=== PATIENT | male | born 1970 | race African-American/Black ===

== ENCOUNTER 2018-12-27 06:21 | Emergency (ER) | payer SELFPAY ==
[2018-12-27] MEDS ORDERED: HYDROCOD 2.5mg-ACETAMIN 108mg/5mL Soln ONE (06:45)
[2018-12-27] MEDS ORDERED: DEXAMETHASONE 4 MG/ML VIAL ONE (06:45)
[2018-12-27] MEDS ORDERED: CLINDAMYCIN IV 150 MG/ML (4 mL) VIAL ONE (06:48)
--- NOTE | 2018-12-27 07:21 | EDPHYS ---
Physician Documentation [facility] Name: Javid Reza Age: 48 yrs Sex: Male : 1970 Arrival Date: 12/27/2018 Time: 06:23 Bed 8 Private MD: ED Physician Derek Tomlin HPI: 12/27 06:33 This 48 yrs old Black Male presents to ER via EMS with complaints of Sore Throat, Fever.snw 06:33 The patient presents with sore throat, dysphagia, of both solids and liquids. The snw patient describes throat pain as raw, scratchy. Onset: The symptoms/episode began/occurred suddenly, 2 day(s) ago, and became persistent. Severity of symptoms: At their worst the symptoms were moderate, this morning. Modifying factors: The symptoms are alleviated by nothing, the symptoms are aggravated by swallowing. The patient has not experienced similar symptoms in the past. The patient has not recently seen a physician. Historical: - Allergies: 06:27 PENICILLINS; fc - Home Meds: 06:27 None [Active]; fc - PMHx: 06:27 None; fc - PSHx: 06:27 spider bite infection; fc - Immunization history:: Last tetanus immunization: up to date Flu vaccine is not up to date. - Social history:: Smoking status: Patient/guardian denies using tobacco, the patient reports quitting approximately .25 years ago, Patient/guardian denies using alcohol, the patient reports quitting approximately .25 years ago. - Ebola Screening: : Patient negative for fever greater than or equal to 101.5 degrees Fahrenheit, and additional compatible Ebola Virus Disease symptoms Patient denies exposure to infectious person Patient denies travel to an Ebola-affected area in the 21 days before illness onset. ROS: 06:30 Eyes: Negative for injury, pain, redness, and discharge. snw 06:30 Cardiovascular: Negative for chest pain, palpitations, and edema, Respiratory: Negative for shortness of breath, cough, wheezing, and pleuritic chest pain, Abdomen/GI: Negative for abdominal pain, nausea, vomiting, diarrhea, and constipation, Back: Negative for injury and pain, : Negative for injury, bleeding, discharge, and swelling, MS/Extremity: Negative for injury and deformity, Skin: Negative for injury, rash, and discoloration, Neuro: Negative for headache, weakness, numbness, tingling, and seizure. 06:30 Constitutional: Positive for body aches, fever, malaise, poor PO intake. 06:30 ENT: Positive for ear pain, sore throat. 06:30 Neck: Positive for swollen nodes, tenderness, of the left submandibular area and left anterior aspect of neck. Exam: 06:30 Head/Face: Normocephalic, atraumatic. Eyes: Pupils equal round and reactive to light, snw extra-ocular motions intact. Lids and lashes normal. Conjunctiva and sclera are non-icteric and not injected. Cornea within normal limits. Periorbital areas with no swelling, redness, or edema. Chest/axilla: Normal chest wall appearance and motion. Nontender with no deformity. No lesions are appreciated. Cardiovascular: Regular rate and rhythm with a normal S1 and S2. No gallops, murmurs, or rubs. Normal PMI, no JVD. No pulse deficits. Respiratory: Lungs have equal breath sounds bilaterally, clear to auscultation and percussion. No rales, rhonchi or wheezes noted. No increased work of breathing, no retractions or nasal flaring. Abdomen/GI: Soft, non-tender, with normal bowel sounds. No distension or tympany. No guarding or rebound. No evidence of tenderness throughout. Back: No spinal tenderness. No costovertebral tenderness. Full range of motion. Skin: Warm, dry with normal turgor. Normal color with no rashes, no lesions, and no evidence of cellulitis. MS/ Extremity: Pulses equal, no cyanosis. Neurovascular intact. Full, normal range of motion. Neuro: Awake and alert, GCS 15, oriented to person, place, time, and situation. Cranial nerves II-XII grossly intact. Motor strength 5/5 in all extremities. Sensory grossly intact. Cerebellar exam normal. Normal gait. Psych: Awake, alert, with orientation to person, place and time. Behavior, mood, and affect are within normal limits. 06:30 Constitutional: The patient appears alert, awake, uncomfortable. 06:30 ENT: Ear canal(s): are normal, TM's: no acute changes, Nose: is normal, Mouth: is normal, Posterior pharynx: Airway: normal, no evidence of obstruction, Tonsils: enlarged on the left, Uvula: edematous, swelling, that is mild, erythema, that is moderate, Voice: is normal. Vital Signs: 06:20 BP 143 / 67; Pulse 79; Resp 18; Temp 99.1(O); Pulse Ox 99% on R/A; Weight 124.74 kg fc (R); Height 6 ft. 02 in. (187.96 cm) (R); Pain 7/10; 06:59 BP 136 / 66; Pulse 69; Resp 18; Pulse Ox 96% on R/A; Pain 8/10; tl1 07:29 BP 129 / 63; Pulse 79; Resp 18 S; Pulse Ox 97% on R/A; Pain 8/10; aa5 06:20 Body Mass Index 35.31 (124.74 kg, 187.96 cm) fc MDM: 06:25 Patient medically screened. singh 07:22 Data reviewed: vital signs, nurses notes. Data interpreted: Pulse oximetry: on room air snw is 96 %. Interpretation: acceptable. Counseling: I had a detailed discussion with the patient and/or guardian regarding: the historical points, exam findings, and any diagnostic results supporting the discharge/admit diagnosis, lab results, the need for outpatient follow up, to return to the emergency department if symptoms worsen or persist or if there are any questions or concerns that arise at home. Special discussion: I have referred the patient to see his PCP for further evaluation of high blood pressure. Based on the history and exam findings, there is no indication for further emergent testing or inpatient evaluation. I discussed with the patient/guardian the need to see the primary care provider for further evaluation of the symptoms. 03 06:38 Order name: Influenza Screen (A ; Complete Time: 07:19 EDMS 12/27 06:38 Order name: Group A Streptococcus Rapid Sc; Complete Time: 07:19 EDMS Administered Medications: 06:49 Drug: Clindamycin 600 mg {Note: divided dose given in bilateral gluteus/ 2ml per dose.} tl1 Route: IM; Site: left gluteus; 07:30 Follow up: Response: No adverse reaction aa5 06:50 Drug: Decadron - Dexamethasone 10 mg {Note: given po per Dr order.} Route: IVP; Site: tl1 Other; 07:30 Follow up: Response: No adverse reaction aa5 06:51 Drug: Lortab Liquid 15 ml Route: PO; tl1 07:30 Follow up: Response: No adverse reaction aa5 Disposition: 12/27/18 07:20 Discharged to Home. Impression: Streptococcal pharyngitis. - Condition is Stable. - Discharge Instructions: Strep Throat, Rehydration, Adult. - Prescriptions for Clindamycin HCl 300 mg Oral Capsule - take 1 capsule by ORAL route every 6 hours for 10 days; 40 capsule. Prednisone 20 mg Oral Tablet - take 2 tablet by ORAL route once daily for 5 days; 10 tablet. - Work release form, Medication Reconciliation Form, Thank You Letter, Antibiotic Education, Prescription Opioid Use form. - Follow up: Private Physician; When: 2 - 3 days; Reason: Recheck today's complaints, Continuance of care, Re-evaluation by your physician. Follow up: Emergency Department; When: As needed; Reason: Worsening of condition. Addendum: 12/30/2018 11:23 Co-signature as Attending Physician, Derek Tomlin MD I agree with the assessment and c campos plan of care. Signatures: Dispatcher [employer] EDDE Derek Tomlin MD MD cha Therrien, Shelly, OFFICE CLIN ASST-C OFFICE CLIN ASST-[place] Ana María Gong RN RN Alissa Lyon RN RN aa5 Ting Guthrie RN RN tl1 Corrections: (The following items were deleted from the chart) 12/27 07:33 07:20 12/27/2018 07:20 Discharged to Home. Impression: Streptococcal pharyngitis. aa5 Condition is Stable. Forms are Medication Reconciliation Form, Thank You Letter, Antibiotic Education, Prescription Opioid Use. Follow up: Private Physician; When: 2 - 3 days; Reason: Recheck today's complaints, Continuance of care, Re-evaluation by your physician. Follow up: Emergency Department; When: As needed; Reason: Worsening of condition. snw
--- NOTE | 2018-12-27 07:21 | ER ---
Nurse's Notes [facility] Name: Javid Reza Age: 48 yrs Sex: Male : 1970 Arrival Date: 12/27/2018 Time: 06:23 Bed 8 Private MD: Diagnosis: Streptococcal pharyngitis Presentation: 12/27 06:20 Presenting complaint: Patient states: that he has had a fever, sore throat and left ear fc pain x 2 days. Transition of care: patient was not received from another setting of care. Onset of symptoms was December 25, 2018. Risk Assessment: Do you want to hurt yourself or someone else? Patient reports no desire to harm self or others. Initial Sepsis Screen: Does the patient meet any 2 criteria? No. Patient's initial sepsis screen is negative. Does the patient have a suspected source of infection? No. Patient's initial sepsis screen is negative. Care prior to arrival: None. 06:20 Method Of Arrival: EMS: [facility] 06:20 Acuity: MARTA 4 fc Historical: - Allergies: 06:27 PENICILLINS; fc - Home Meds: 06:27 None [Active]; fc - PMHx: 06:27 None; fc - PSHx: 06:27 spider bite infection; fc - Immunization history:: Last tetanus immunization: up to date Flu vaccine is not up to date. - Social history:: Smoking status: Patient/guardian denies using tobacco, the patient reports quitting approximately .25 years ago, Patient/guardian denies using alcohol, the patient reports quitting approximately .25 years ago. - Ebola Screening: : Patient negative for fever greater than or equal to 101.5 degrees Fahrenheit, and additional compatible Ebola Virus Disease symptoms Patient denies exposure to infectious person Patient denies travel to an Ebola-affected area in the 21 days before illness onset. Screenin:26 Abuse screen: Denies threats or abuse. Nutritional screening: No deficits noted. fc Tuberculosis screening: No symptoms or risk factors identified. Fall Risk None identified. Assessment: 06:57 General: Appears in no apparent distress. uncomfortable, Behavior is calm, cooperative, tl1 appropriate for age. Pain: Complains of pain in left aspect of posterior pharynx and right aspect of posterior pharynx and neck Pain currently is 8 out of 10 on a pain scale. Quality of pain is described as sharp, stabbing. Neuro: Level of Consciousness is awake, alert, obeys commands, Oriented to person, place, time, situation. Cardiovascular: No deficits noted. Denies chest pain. Respiratory: Airway is patent Trachea midline Respiratory effort is even, unlabored, Respiratory pattern is regular, symmetrical, Breath sounds are clear bilaterally. GI: Abdomen is non-distended, Bowel sounds present X 4 quads. Abd is soft and non tender X 4 quads. : No signs and/or symptoms were reported regarding the genitourinary system. EENT: Throat is reddened has enlarged tonsils on left Reports difficulty swallowing pain when swallowing. Derm: No deficits noted. 07:28 Reassessment: OPERATOR PREFINISH at bedside discussing discharge instructions and lab results with aa5 patient. . 07:30 Neuro: Level of Consciousness is awake, alert, obeys commands, Oriented to person, aa5 place, time, situation. Respiratory: Airway is patent Respiratory effort is even, unlabored, Respiratory pattern is regular, symmetrical. Derm: Skin is dry, Skin is normal, Skin temperature is warm. Vital Signs: 06:20 BP 143 / 67; Pulse 79; Resp 18; Temp 99.1(O); Pulse Ox 99% on R/A; Weight 124.74 kg (R); Height 6 ft. 02 in. (187.96 cm) (R); Pain 7/10; 06:59 BP 136 / 66; Pulse 69; Resp 18; Pulse Ox 96% on R/A; Pain 8/10; tl1 07:29 BP 129 / 63; Pulse 79; Resp 18 S; Pulse Ox 97% on R/A; Pain 8/10; aa5 06:20 Body Mass Index 35.31 (124.74 kg, 187.96 cm) ED Course: 06:20 Arm band placed on Patient placed in an exam room, on a stretcher. 06:23 Patient arrived in ED. fc 06:24 Aleja Herring FNP-C [facility]. snw 06:24 Derek Tomlin MD is Attending Physician. snw 06:25 Triage completed. 06:26 Ting Guthrie, ASHELY is Primary Nurse. tl1 06:26 Patient has correct armband on for positive identification. Bed in low position. Call light in reach. Side rails up X2. Pulse ox on. NIBP on. 06:26 No provider procedures requiring assistance completed. 07:01 Influenza Screen (A Sent. tl1 07:01 Group A Streptococcus Rapid Sc Sent. tl1 07:30 Patient did not have IV access during this emergency room visit. aa5 Administered Medications: 06:49 Drug: Clindamycin 600 mg {Note: divided dose given in bilateral gluteus/ 2ml per dose.} tl1 Route: IM; Site: left gluteus; 07:30 Follow up: Response: No adverse reaction aa5 06:50 Drug: Decadron - Dexamethasone 10 mg {Note: given po per Dr order.} Route: IVP; Site: tl1 Other; 07:30 Follow up: Response: No adverse reaction aa5 06:51 Drug: Lortab Liquid 15 ml Route: PO; tl1 07:30 Follow up: Response: No adverse reaction aa5 Outcome: 07:20 Discharge ordered by . gui 07:30 Discharged to home ambulatory, with significant other. aa5 07:30 Condition: stable 07:30 Discharge instructions given to patient, Instructed on discharge instructions, follow up and referral plans. medication usage, Demonstrated understanding of instructions, follow-up care, medications, Prescriptions given X 2. 07:33 Patient left the ED. aa5 Signatures: Aleja Herring, MECHANICAL MAINTENANCE-C MECHANICAL MAINTENANCE-[place] Ana María Gong RN RN Alissa Lyon RN RN aa5 Ting Guthrie RN RN tl1
[2018-12-27 07:37] VITALS: BP 136/66; O2SAT 96
== END 2018-12-27 07:33 | disposition home or self-care (01) ==
LOC: ER 06:21
DX: J02.0 Streptococcal pharyngitis (principal); Z88.0 Allergy status to penicillin
CPT/HCPCS: 87081; 87804; 96372; 96374; 99284; S0077

== ENCOUNTER 2025-08-14 16:32 | Emergency (ER) | payer SELFPAY ==
--- OUTSIDE RECORDS SUMMARY | 2025-08-14 16:39 | XMS REPORT | Continuity of Care Document ---
Author Name Unknown Address [address] [address] [place] [address] [facility] Address [address] [place] [address] Care Team Providers Care Food Demonstrator Name Role Phone Pcp, Patient Does Not Have A Primary Care Physic bijal ADARSH GONZALEZ Attending Clinician Unavailable BETINA HUMPHREY Attending Clinician Unavailable RENE GALEANA Attending Clinician Unavailab le LAB90 Attending Clinician Unavailable CHIVO LANDON Attending Clinician Unavailable MD JIGAR Attending Clinician Unavailab ANDRA Robison Attending Clinician Unavailable MENDEZ HAGAN Attending Clinician Unavailable Therapy, Adc Covid Infusion Attending Clinician Unavailable Mendez Hagan MD Attending Clinician [phone] Doctor Unassigned, [place] Attending Clinician U navailable Payers Payer Name Policy Type Policy Number Effective Date Expirati on Date Source DEB Sexton 9 [id number] 2025 00:00:00 Problems Condition Name Condition Details Condition Category Status Onset Date Resolution Date Last Treatment Date Treating Clinician Comments Source 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) Disease Active 07-19 00:00: 00 Natalie aiken Immunodefi ciency due to poorly controlled type 2 diabetes (CMS/HCC) (multi HCC) Immunodefi ciency due to poorly controlled type 2 diabetes (CMS/HCC) (multi HCC) Disease Active 06-13 00:00: 00 Natalie Morrisona attila Well adult exam Well adult exam Disease Active 06-08 00:00: 00 Natalie Morrisona attila Plantar fasciitis, bilateral Plantar fasciitis, bilateral Disease Active 06-08 00:00: 00 Natalie Mantilla - Externa l Allergies, Adverse Reactions, Alerts Allergy Name Allergy Type Status Severity Reaction(s) Onset Date Inactive Date Treating Clinician Comments Source PENICILL INS Drug Class Active Swelling 07-19 00:00: 00 [facility] Penicill ins Propensi ty to adverse reaction s Active Swelling 07-19 00:00: 00 [facility] Penicill ins Propensi ty to adverse reaction s Active Swelling 07-19 00:00: 00 Natalie Morrisona attila NO KNOWN ALLERGIE S Drug Class Active [facility] Social History Social Habit Start Date Stop Date Quantity Comments Source Sexual orientation Raudel Mantilla - External History of tobacco use Cigarette Smoker Natalie alas - External Alcoholic beverage intake 2025-03-28 00:00:00 2025-03-28 00:00:00 Current drinker of alcohol (finding) Natalie Mantilla - External History of Social function 2024-06-07 00:00:00 2024-06-07 00:00:00 Natalie Mantilla - External Alcohol Comment 2024-06-07 00:00:00 2024-06-07 00:00:00 occassional Natalie Mantilla - External Tobacco use and exposure 2024-06-07 00:00:00 2024-06-07 00:00:00 Smokeless tobacco non-user Natalie Mantilla - External Sex 2023-07-31 17:48:56 2023-07-31 17:48:56 Male (finding) Natalie Mantilla - External Sex assigned at 1970 00:00:00 1970 00:00:00 Natalie Bell External Smoking Status Start Date Stop Date Source Unknown if ever smoked [facility] Ex-smoker 2024-06-07 00:00:00 2024-06-07 00:00:00 K elsey Seybold - External Medications Ordered Medication Name Filled Medication Name Start Date Stop Date Current Medication? Ordering Clinician Indication Dosage Frequency Signature (SIG) Comments Components Source Dulaglutide (Trulicity) 4.5 MG/0.5ML subcutaneou s Solution Auto-inject or 03-28 00:00: 00 Yes [id number] 4.5mg Q1W Inject 4.5 mg into the skin once a week. Natalie Bell Externa attila Atorvastati n Calcium 20 MG oral Tablet 03-28 00:00: 00 Yes [id number] 3 20mg QD Take 1 tablet (20 mg total) by mouth nightly. Natalie Bell Externa l Losartan Potassium 25 MG oral Tablet 03-28 00:00: 00 Yes [id number] 25mg QD Take 1 tablet (25 mg total) by mouth daily. Natalie Morrisona attila Dulaglutide (Trulicity) 3 MG/0.5ML subcutaneou s Solution Auto-inject or 02-25 00:00: 00 03-28 00:00 :00 No [id number] 3mg Q1W Inject 3 mg into the skin once a week. Natalie aiken Trulicity 1.5 MG/0.5ML subcutaneou s Solution Auto-inject or 02-22 00:00: 00 02-25 00:00 :00 No [id number] INJECT 1 PREFILLED SYRINGE SUBCUTANEO USLY ONCE A WEEK Natalie aiken GlipiZIDE 2.5 MG oral TABLET SR 24 HR 02-11 00:00: 00 Yes [id number] 2.5mg QD Take 1 tablet (2.5 mg total) by mouth daily. Natalie Bell Externa attila Dulaglutide (Trulicity) 1.5 MG/0.5ML subcutaneou s Solution Auto-inject or 11-22 00:00: 00 Yes [id number] 1.5mg Q1W Inject 1.5 mg into the skin once a week. Natalie Bell Externa l Trulicity 1.5 MG/0.5ML subcutaneou s Solution Auto-inject or 2023-10 2- 00:00: 00 11-22 00:00 :00 No [id number] 1.5mg Q1W Inject 1.5 mg into the skin once a week. Natalie aiken GlipiZIDE 2.5 MG oral TABLET SR 24 HR 2023-10 0 00:00: 00 Yes [id number] 2.5mg QD Take 1 tablet (2.5 mg total) by mouth daily. Natalie aiken Trulicity 1.5 MG/0.5ML subcutaneou s Solution Pen-injecto r 07-19 00:00: 00 Yes [id number] 1.5mg Q1W Inject 1.5 mg into the skin once a week. Natalie aiken GlipiZIDE 2.5 MG oral TABLET SR 24 HR 06-18 00:00: 00 Yes [id number] 2.5mg QD Take 1 tablet (2.5 mg total) by mouth daily. Natalie aiken Glucose Blood in vitro Strip 06-16 00:00: 00 Yes [id number] 1{each} Q.5D 1 each by other route 2 times daily. Natalie aiken Lancets does not apply Misc 06-16 00:00: 00 Yes [id number] For twice daily glucose monitoring . Natalie aiken Blood Glucose Monitoring Suppl (Blood Glucose Monitor System) w/Device does not apply Kit 06-15 00:00: 00 Yes [id number] Please check blood sugars twice a day. Natalie aiken Trulicity 0.75 MG/0.5ML subcutaneou s Solution Pen-injecto r 06-15 00:00: 00 07-19 00:00 :00 No [id number] .75mg Q1W Inject 0.75 mg into the skin once a week. Natalie aiken casirivimab -imdevimab (REGEN-COV (EUA)) injection 1,200 mg 07-19 21:00: 00 07-19 19:54 :00 No [id number] 1200mg 1,200 mg, Subcutaneo us, ONCE, 1 dose, On Ester 07/19/21 at 1600, Routine [facility] Immunizations Ordered Immunization Name Filled Immunization Name Date Status Comments Source Tdap- (Boostrix, Adacel) Unknown Completed Natalie Seybold - External Tdap- (Boostrix, Adacel) Unknown Completed Natalie Seybold - External Tdap- (Boostrix, Adacel) Unknown Completed Natalie Seybold - External Tdap- (Boostrix, Adacel) Unknown Completed Natalie Seybold - External Tdap- (Boostrix, Adacel) Unknown Completed Natalie Seybold - External Tdap- (Boostrix, Adacel) Unknown Completed Natalie Gómezybold - External Vital Signs Vital Name Observation Time Observation Value Comments S ource Systolic blood pressure 2025-03-28 18:53:00 142 mm[Hg] Natalie Gómezybo ld - External Diastolic blood pressure 2025-03-28 18:53:00 80 mm[Hg] Natalie Gómezybo ld - External Heart rate 2025-03-28 18:47:00 90 /min Jose Martin y Seybold - External Body temperature 2025-03-28 18:47:00 36.72 Lissa Natalie Gómezybold - External Respiratory rate 2025-03-28 18:47:00 15 /min Natalie Seybold - External Body height 2025-03-28 18:47:00 188 cm Pamela mondragon Seybold - External Body weight 2025-03-28 18:47:00 111.585 kg Pamela ey Seybold - External BMI 2025-03-28 18:47:00 31.58 kg/m2 Pamela ey Seybold - External Oxygen saturation in Arterial blood by Pulse oximetry 2025-03-28 18:47:00 97 /min Natalie Kango ld - External Systolic blood pressure 2025-02-25 18:15:00 162 mm[Hg] Natalie Seybo ld - External Diastolic blood pressure 2025-02-25 18:15:00 81 mm[Hg] Natalie Gómezybo ld - External Heart rate 2025-02-25 18:03:00 100 /min Kelse y Seybold - External Body temperature 2025-02-25 18:03:00 36.94 Lissa Natalie Seybold - External Respiratory rate 2025-02-25 18:03:00 20 /min Natalie Seybold - External Body height 2025-02-25 18:03:00 188 cm Pamela ey Seybold - External Body weight 2025-02-25 18:03:00 111.358 kg Pamela ey Seybold - External BMI 2025-02-25 18:03:00 31.52 kg/m2 Pamela ey Seybold - External Oxygen saturation in Arterial blood by Pulse oximetry 2025-02-25 18:03:00 98 /min Natalie Seybo ld - External Systolic blood pressure 2024-11-22 21:18:00 136 mm[Hg] Natalie Seybo ld - External Diastolic blood pressure 2024-11-22 21:18:00 70 mm[Hg] Natalie Seybo ld - External Heart rate 2024-11-22 21:18:00 86 /min Kelse y Seybold - External Body temperature 2024-11-22 21:18:00 36.11 Lissa Natalie Seybold - External Respiratory rate 2024-11-22 21:18:00 15 /min Natalie Seybold - External Body height 2024-11-22 21:18:00 188 cm Pamela ey Seybold - External Body weight 2024-11-22 21:18:00 112.946 kg Pamela ey Seybold - External BMI 2024-11-22 21:18:00 31.97 kg/m2 Pamela ey Seybold - External Oxygen saturation in Arterial blood by Pulse oximetry 2024-11-22 21:18:00 99 /min Natalie Seybo ld - External Systolic blood pressure 2024-07-19 13:05:00 124 mm[Hg] Natalie Seybo ld - External Diastolic blood pressure 2024-07-19 13:05:00 68 mm[Hg] Natalie Seybo ld - External Heart rate 2024-07-19 13:05:00 84 /min Kelse y Seybold - External Body temperature 2024-07-19 13:05:00 36.67 Lissa Natalie Seybold - External Respiratory rate 2024-07-19 13:05:00 18 /min Natalie Seybold - External Body height 2024-07-19 13:05:00 188 cm Pamela ey Seybold - External Body weight 2024-07-19 13:05:00 106.822 kg Pamela ey Seybold - External BMI 2024-07-19 13:05:00 30.24 kg/m2 Pamela ey Seybold - External Oxygen saturation in Arterial blood by Pulse oximetry 2024-07-19 13:05:00 98 /min Natalie Seybo ld - External Systolic blood pressure 2024-06-08 15:27:00 132 mm[Hg] Natalie Seybo ld - External Diastolic blood pressure 2024-06-08 15:27:00 80 mm[Hg] Natalie Seybo ld - External Heart rate 2024-06-08 15:27:00 85 /min Corina y Seybold - External Body temperature 2024-06-08 15:27:00 36.78 Lissa Natalie Gómezybold - External Respiratory rate 2024-06-08 15:27:00 20 /min Natalie Gómezybold - External Body height 2024-06-08 15:27:00 188 cm Pamela ey Seybold - External Body weight 2024-06-08 15:27:00 103.59 kg Pamela ey Seybold - External BMI 2024-06-08 15:27:00 29.32 kg/m2 Pamela ey Seybold - External Oxygen saturation in Arterial blood by Pulse oximetry 2024-06-08 15:27:00 97 /min Natalie Kango ld - External Systolic blood pressure 2021-07-19 20:39:00 140 mm[Hg] [facility] Diastolic blood pressure 2021-07-19 20:39:00 87 mm[Hg] [facility] Heart rate 2021-07-19 20:39:00 85 /min [facility] Body temperature 2021-07-19 20:39:00 36.17 Lissa [facility] Respiratory rate 2021-07-19 20:39:00 20 /min [facility] Oxygen saturation in Arterial blood by Pulse oximetry 2021-07-19 20:39:00 98 /min [facility] Body height 2021-07-19 19:45:00 188 cm [facility] Body weight 2021-07-19 19:45:00 104.327 kg [facility] BMI 2021-07-19 19:45:00 29.53 kg/m2 [facility] Procedures Procedure Date / Time Performed Performing Clinicia n Source CONSENT/REFUSAL FOR DIAGNOSIS AND TREATMENT 2021-07-19 05:01:00 Doctor Unassigned, [place] [facility] Encounters Start Date/Time End Date/Time Encounter Type Admission Type Attending [facility] Care Department Encounter ID Source 2025-07-11 00:00:00 2025-07-11 00:00:00 Outpatient ADARSH GONZALEZ [id number] Natalie [facility] 2025-06-17 14:15:00 2025-06-17 14:15:00 Outpatient NATALIE ROGERS [id number] Natalie [facility] 2025-06-10 11:00:00 2025-06-10 11:00:00 Outpatient BETINA HUMPHREY [id number] [facility] 2025-06-03 14:30:00 2025-06-03 14:30:00 Outpatient LISA ADARSH ROGERS [id number] [facility] 2025-05-16 16:30:00 2025-05-16 16:30:00 Outpatient NATALIE ROGERS [id number] [facility] 2025-05-12 00:00:00 2025-05-12 00:00:00 [facility] [id number] [facility]25-05-09 15:00:00 2025-05-09 15:00:00 Outpatient LISA ADARSH ROGERS [id number] [facility] 2025-04-27 11:00:00 2025-04-27 11:00:00 Outpatient BETINA HUMPHREY [id number] [facility] 2025-04-22 00:00:00 2025-04-22 00:00:00 Outpatient RENE GALEANA [id number] Natalie [facility] 2025-04-08 13:00:00 2025-04-08 13:00:00 [facility] [id number] [facility] 2025-03-28 14:45:00 2025-03-28 14:45:00 Outpatient LAB90 NATALIE NATALIE [id number] Natalie Seybold 2025-03-28 14:00:00 2025-03-28 14:00:00 Outpatient LISA, ADARSH NATALIE ROGERS [id number] Natalie Seybold 2025-03-24 00:00:00 2025-03-24 00:00:00 Outpatient ADARSH GONZALEZ NATALIE NATALIE [id number] Natalie Seybold 2025-03-04 15:00:00 2025-03-04 15:00:00 Outpatient HUNDAttila, ADARSH NATALIE ROGERS [id number] Natalie Seybold 2025-02-25 14:15:00 2025-02-25 14:15:00 Outpatient LAB90 NATALIE ROGERS [id number] Natalie Seybold 2025-02-25 13:30:00 2025-02-25 13:30:00 Outpatient LANDON, CHIVO NATALIE ROGERS [id number] Natalie Seybold 2025-02-24 11:40:00 2025-02-24 11:40:00 Outpatient LAB90 NATALIE ROGERS [id number] Natalie Seybold 2025-02-21 00:00:00 2025-02-21 00:00:00 Outpatient ADARSH GONZALEZ NATALIE ROGERS [id number] Natalie Seybold 2025-02-21 00:00:00 2025-02-21 00:00:00 Outpatient LISA ADARSH NATALIE ROGERS [id number] Natalie Seybold 2025-02-15 00:00:00 2025-02-15 00:00:00 Outpatient MD NATALIE ROBLES [id number] Natalie Seybold 2025-02-11 00:00:00 2025-02-11 00:00:00 Outpatient RENE GALEANA [id number] Natalie Seybold 2025-01-31 15:00:00 2025-01-31 15:00:00 Outpatient LUCASAttila ADARSH ROGERS [id number] Natalie Seybold 2025-01-31 00:00:00 2025-01-31 00:00:00 Outpatient ADARSH GONZALEZ NATALIE [id number] [facility] 2024-12-28 15:30:00 2024-12-28 15:30:00 Outpatient ADARSH GONZALEZ NATALIE [id number] [facility] 2024-12-01 00:00:00 2024-12-01 00:00:00 Outpatient RENE GALEANA [facility]ALIE [facility]OG[facility] [id number] [facility] 2024-11-22 15:30:00 2024-11-22 15:30:00 Outpatient ADARSH GONZALEZ NATALIE ROGERS [id number] [facility] 2024-10-21 00:00:00 2024-10-21 00:00:00 Outpatient RENE GALEANA NATALIE ROGERS [id number] Natalie [facility] 2024-10-21 00:00:00 2024-10-21 00:00:00 Outpatient RENE GALEANA NATALIE ROGERS [id number] Natalie [facility] 2024-10-18 08:00:00 2024-10-18 08:00:00 Outpatient RENE GALEANA NATALIE ROGERS [id number] [facility] 2024-10-11 08:30:00 2024-10-11 08:30:00 Outpatient ADARSH GONZALEZ NATALIE ROGERS [id number] Natalie [facility] 2024-09-22 00:00:00 2024-09-22 00:00:00 Outpatient RENE GALEANA NATALIE [facility]OG[facility] [id number] [facility] 2024-08-16 00:00:00 2024-08-16 00:00:00 Outpatient RENE GALEANA NATALIE ROGERS [id number] Natalie Seybold 2024-08-12 00:00:00 2024-08-12 00:00:00 Outpatient RENE GALEANA NATALIE ROGERS [id number] Natalie Seybold 2024-07-19 11:00:00 2024-07-19 11:00:00 Outpatient ANDRA GRAY [id number] Natalie Seybold 2024-07-19 08:45:00 2024-07-19 08:45:00 Outpatient LAB90 NATALIE ROGERS [id number] [facility] 2024-07-19 08:00:00 2024-07-19 08:00:00 Outpatient RENE GALEANA [id number] [facility] 2024-06-23 00:00:00 2024-06-23 00:00:00 Outpatient RENE GALEANA [id number] Natalie Seybold 2024-06-18 00:00:00 2024-06-18 00:00:00 Outpatient RENE GALEANA [id number] Natalie Seybold 2024-06-18 00:00:00 2024-06-18 00:00:00 Outpatient RENE GALEANA [id number] [facility] 2024-06-16 00:00:00 2024-06-16 00:00:00 Outpatient RENE GALEANA NATALIE [id number] [facility] 2024-06-16 00:00:00 2024-06-16 00:00:00 Outpatient RENE GALEANA [id number] [facility] 2024-06-15 00:00:00 2024-06-15 00:00:00 Outpatient RENE GALEANA [id number] [facility] 2024-06-13 00:00:00 2024-06-13 00:00:00 Outpatient RENE GALEANA NATALIE [id number] [facility] 2024-06-08 11:25:00 2024-06-08 11:25:00 Outpatient LAB90 NATALIE SANFORDSEY [id number] Natalie Seybold 2024-06-08 10:30:00 2024-06-08 10:30:00 Outpatient RENE GALEANA NATALIE [id number] [facility] 2024-06-08 00:00:00 2024-06-08 00:00:00 Outpatient NATALIE NATALIE [id number] Natalie Seybold 2021-07-19 14:30:00 2021-07-19 14:30:00 Outpatient MENDEZ GILL [facility] [id number] [facility] 2021-07-19 13:13:03 2021-07-19 14:13:03 Nurse Visit Therapy, Adc Covid Kassidy Hagan Mendez A [facility] [id number] [facility] 2021-07-19 00:00:00 2021-07-19 00:00:00 Orders Only Doctor Unassigned, [place] [facility] [id number] [facility] Notes Date/Time Note Provider Source 2025-03-28 13:51:59 Chief Complaint Patient presents with Diabetes Diabetic follow up Radha Guerra MA Radha Guerra MA [facility] 2024-11-22 15:21:32 Chief Complaint Patient presents with Diabetes Diabetic follow up Radha Guerra MA RNATIONAL ACCOUNT MANAGER Radha Guerra MA [facility] 2024-07-19 08:07:58 Chief Complaint Patient presents with Follow-up Dulce Edgar LVN [facility] 2024-06-08 10:31:20 Chief Complaint Patient presents with Physical Fasting for labs. Has a tightness in both feet, Dulce Edgar LVN [facility]
[2025-08-14] MEDS ORDERED: CEPHALEXIN 250 MG CAP ONE (18:22)
[2025-08-14] MEDS ORDERED: SMZ./TMP. 800/160 MG TABLET ONE (18:23)
--- NOTE | 2025-08-14 18:45 | RAD REPORT ---
EXAMINATION: XR Foot Right 3 View CLINICAL INDICATION: Male, 54 years old. [facility] R/o osteo of right great toe;Pain Bed Name: 8 TECHNIQUE: 3 view radiographs of the right foot were obtained. COMPARISON: No prior exam. FINDINGS: No evidence of fracture or dislocation. Normal alignment. 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 No evidence of arthropathy or other focal bone lesion. Soft tissues are unremarkable. Mild midfoot degenerative changes. IMPRESSION: No acute osseous abnormalities or destructive changes. If there is concern for acute osteomyelitis, a dditional evaluation by MRI would be more helpful. Additional findings as above.
--- NOTE | 2025-08-14 18:53 | EDPHYS ---
Physician Documentation [facility] Name: Javid Reza Age: 54 yrs Sex: Male : 1970 Arrival Date: 08/14/2025 Time: 16:32 Bed 8 Private MD: ED Physician Derek Tomlin HPI: 08/14 18:49 This 54 yrs old Black Male presents to ER via Ambulatory with complaints of Leg dr5 Swelling, Leg Pain, Foot Pain. 18:49 The patient presents with an injury, pain. Onset: The symptoms/episode began/occurred dr5 acutely. Patient is a 54-year-old male with history of diabetes coming in with puncture wound to the bottom of left great toe that happened yesterday. Patient does not know what has punctured him. Patient reports he has uncontrolled diabetes and is concerned about infection. Patient denies fever, pain, or drainage from wound.. Historical: - Allergies: 16:58 PENICILLINS; me1 - PMHx: 16:58 Diabetes mellitus; me1 - PSHx: 16:58 None; me1 - Immunization history:: Adult Immunizations up to date. - Infectious Disease History:: Denies. - Social history:: Smoking status: Patient/guardian denies using tobacco, but has a distant history of tobacco abuse. ROS: 18:49 Constitutional: as per hpi dr5 Exam: 18:49 Constitutional: This is a well developed, well nourished patient who is awake, alert, dr5 and in no acute distress. Head/Face: Normocephalic, atraumatic. Eyes: Pupils equal round and reactive to light, extra-ocular motions intact. Lids and lashes normal. Conjunctiva and sclera are non-icteric and not injected. Cornea within normal limits. Periorbital areas with no swelling, redness, or edema. Neck: Trachea midline, no thyromegaly or masses palpated, and no cervical lymphadenopathy. Supple, full range of motion without nuchal rigidity, or vertebral point tenderness. No Meningismus. Chest/axilla: Normal chest wall appearance and motion. Nontender with no deformity. No lesions are appreciated. Cardiovascular: Regular rate and rhythm with a normal S1 and S2. Normal PMI, no JVD. No pulse deficits. Respiratory: Lungs have equal breath sounds bilaterally, clear to auscultation. No rales, rhonchi or wheezes noted. No increased work of breathing, no retractions or nasal flaring. Back: No spinal tenderness. No costovertebral tenderness. Full range of motion. MS/ Extremity: Pulses equal, no cyanosis. Neurovascular intact. Full, normal range of motion. Neuro: Awake and alert, GCS 15, oriented to person, place, time, and situation. Cranial nerves II-XII grossly intact. Motor strength 5/5 in all extremities. Sensory grossly intact. Cerebellar exam normal. Normal gait. 18:49 Skin: injury, puncture(s), that are superficial, of the plantar aspect of right first toe, Small tank noted to bottom of right great toe. No erythema. No drainage. No tenderness palpation. No swelling., Vital Signs: 16:56 BP 148 / 70; Pulse 86; Resp 18; Temp 97.9; Pulse Ox 97% ; Weight 106.59 kg; Height 6 me1 ft. 3 in. ; Pain 5/10; 18:52 BP 135 / 99; Pulse 79; Resp 16; Pulse Ox 100% on R/A; jb4 16:56 Body Mass Index 29.37 (106.59 kg, 190.5 cm) me1 16:56 Pain Scale: Adult me1 MDM: 16:44 Medical Screening Exam initiated dr5 18:49 Differential diagnosis: open fracture, closed fracture, contusion, abrasion, dr5 Cellulitis, osteomyelitis. Data reviewed: vital signs, nurses notes, radiologic studies. Consideration of Admission/Observation Escalation of care including admission/observation considered. Discussion considered patient found to have osteomyelitis. I considered the following discharge prescriptions or medication management in the emergency department I discussed and recommended Over The Counter medications, Medications were administered in the Emergency Department. See MAR. Care significantly affected by the following chronic conditions: Diabetes. Care significantly affected by the following Social Determinants of Health: Poor access to healthcare and/or lack of insurance, Poor access to transportation, Problems related to employment. Counseling: I had a detailed discussion with the patient and/or guardian regarding the historical points, exam findings, and any diagnostic results supporting the discharge/admit diagnosis, the presence of at least one elevated blood pressure reading (>120/80) during this emergency department visit, radiology results, the need for outpatient follow up, for definitive care, a family practitioner, to return to the emergency department if symptoms worsen or persist or if there are any questions or concerns that arise at home. Medication response: Cephalexin, Bactrim. Response to treatment: the patient is now symptom free. Special discussion: I discussed with the patient/guardian in detail that at this point there is no indication for admission to the hospital. It is understood, however, that if the symptoms persist or worsen the patient needs to return immediately for re-evaluation. Based on the history and exam findings, there is no indication for further emergent testing or inpatient evaluation. I discussed with the patient/guardian the need to see the primary care provider for further evaluation of the symptoms. ED course: Will place patient on antibiotics and have patient follow-up primary care doctor. All question answered. Strict ER precautions given. No osteomyelitis noted on x-ray.. 08/14 17:47 Order name: Foot Right 3 View XRAY; Complete Time: 18:46 dr5 Administered Medications: 18:27 Drug: Cephalexin PO 500 mg PO once Route: PO; jb4 18:54 Follow up: Response: No adverse reaction jb4 18:27 Drug: Trimethoprim-Sulfamethoxazole PO (160 mg-800 mg (DS) 1 tablet PO once Route: PO; jb4 18:53 Follow up: Response: No adverse reaction jb4 Disposition Summary: 08/14/25 18:52 Discharge Ordered Notes: Location: Home dr5 Condition: Stable dr5 Diagnosis - Pain in right toe(s) dr5 Followup: dr5 - With: Emergency Department - When: As needed - Reason: Worsening of condition Followup: dr5 - With: Private Physician - When: 1 - 2 days - Reason: Recheck today's complaints, Continuance of care, Re-evaluation by your physician Discharge Instructions: - Discharge Summary Sheet dr5 - Diabetes Mellitus and Skin Care dr5 Forms: - Medication Reconciliation Form dr5 - Antibiotic Education dr5 - Patient Portal Instructions dr5 - Leadership Thank You Letter dr5 Prescriptions: - Cephalexin 500 mg Oral Capsule - take 1 capsule ORAL route every 12 hours for 10 days; 20 capsule; Refills: 0, dr5 Product Selection Permitted - Bactrim DS 800-160 mg Oral Tablet - take 1 tablet ORAL route every 12 hours for 10 days; 20 tablet; Refills: 0, dr5 Product Selection Permitted Signatures: Dispatcher [employer] David William RN RN jb4 Digna Salcedo RN RN me1 Martínez Geronimo, GUSTABO-C ULTRASONIC WELDING MACHINE OPERATOR-Cdr5
--- NOTE | 2025-08-14 18:53 | ER ---
Nurse's Notes [facility] Name: Javid Reza Age: 54 yrs Sex: Male : 1970 Arrival Date: 08/14/2025 Time: 16:32 Bed 8 Private MD: Diagnosis: Pain in right toe(s) Presentation: 08/14 16:56 Chief complaint: Patient states: c/o bilateral foot pain that worse on the right. me1 Reports that right foot is swollen, symptoms started last night. Pain is 5/10 at rest, 8/10 with weight bearing. Denies injury. Denies fever. States he noticed what looks like a wound starting to develop under his great toe on right foot. Coronavirus screen: Vaccine status: Patient reports receiving the 2nd dose of the covid vaccine. Ebola Screen: No symptoms or risks identified at this time. Initial Sepsis Screen: Does the patient meet any 2 criteria? No. Patient's initial sepsis screen is negative. Does the patient have a suspected source of infection? No. Patient's initial sepsis screen is negative. Risk Assessment: Do you want to hurt yourself or someone else? Patient reports no desire to harm self or others. Onset of symptoms was August 13, 2025 at 17:00. 16:56 Method Of Arrival: Ambulatory [facility] [place] 16:56 Acuity: MARTA 3 me1 Historical: - Allergies: 16:58 PENICILLINS; me1 - PMHx: 16:58 Diabetes mellitus; me1 - PSHx: 16:58 None; me1 - Immunization history:: Adult Immunizations up to date. - Infectious Disease History:: Denies. - Social history:: Smoking status: Patient/guardian denies using tobacco, but has a distant history of tobacco abuse. Screenin:[address] [facility] ED Fall Risk Assessment (Adult) History of falling in the last 3 months, jb4 including since admission No falls in past 3 months (0 pts) Confusion or Disorientation No (0 pts) Intoxicated or Sedated No (0 pts) Impaired Gait No (0 pts) Mobility Assist Device Used Altered Elimination No (0 pt) Score/Fall Risk Level 0 - 2 = Low Risk Oriented to surroundings, Maintained a safe environment. Abuse screen: Denies threats or abuse. Nutritional screening: No deficits noted. Tuberculosis screening: No symptoms or risk factors identified. Assessment: 17:15 General: Appears in no apparent distress. uncomfortable, Behavior is calm, cooperative, jb4 appropriate for age. Pain: Complains of pain in right foot Pain radiates to anterior aspect of right ankle Pain currently is 5 out of 10 on a pain scale. Quality of pain is described as radiating, Aggravated by increased activity. Neuro: Level of Consciousness is awake, alert, obeys commands, Oriented to person, place, time, situation. Cardiovascular: Patient's skin is warm and dry. Respiratory: Airway is patent Respiratory effort is even, unlabored, Respiratory pattern is regular, symmetrical. Derm: Skin is dry, Skin is normal, Skin temperature is warm. Musculoskeletal: Circulation, motion, and sensation intact. Range of motion: intact in all extremities. Injury Description: Puncture sustained to plantar aspect of right first toe. 18:52 Reassessment: Patient appears in no apparent distress at this time. Patient and/or jb4 family updated on plan of care and expected duration. Pain level reassessed. Patient is alert, oriented x 3, equal unlabored respirations, skin warm/dry/pink. Vital Signs: 16:56 BP 148 / 70; Pulse 86; Resp 18; Temp 97.9; Pulse Ox 97% ; Weight 106.59 kg; Height 6 me1 ft. 3 in. ; Pain 5/10; 18:52 BP 135 / 99; Pulse 79; Resp 16; Pulse Ox 100% on R/A; jb4 16:56 Body Mass Index 29.37 (106.59 kg, 190.5 cm) me1 16:56 Pain Scale: Adult me1 ED Course: 16:38 Patient arrived in ED. im 16:44 Martínez Geronimo [facility]-C [facility] 16:44 Derek Tomlin MD is Attending Physician. dr5 16:58 Triage completed. me1 16:58 Arm band placed on Patient placed in an exam room. me1 17:02 David Petersen, RN is Primary Nurse. jb4 17:15 Patient has correct armband on for positive identification. Bed in low position. Call jb4 light in reach. Side rails up X 1. Provided Education on: plan of care. 18:31 Foot Right 3 View XRAY In Process Unspecified. EDMS 18:52 No provider procedures requiring assistance completed. Patient did not have IV access jb4 during this emergency room visit. Administered Medications: 18:27 Drug: Cephalexin PO 500 mg PO once Route: PO; jb4 18:54 Follow up: Response: No adverse reaction jb4 18:27 Drug: Trimethoprim-Sulfamethoxazole PO (160 mg-800 mg (DS) 1 tablet PO once Route: PO; jb4 18:53 Follow up: Response: No adverse reaction jb4 Medication: 17:15 VIS not applicable for this client. jb4 Outcome: 18:52 Discharge ordered by . anya 19:20 Discharged to home ambulatory, jb4 19:20 Condition: stable 19:20 Discharge instructions given to patient, Instructed on discharge instructions, follow up and referral plans. medication usage, Demonstrated understanding of instructions, follow-up care, medications, Prescriptions given X 2, 19:21 Patient left the ED. jb4 Signatures: Dispatcher [employer] EDDavid Contreras, RN RN jb4 Kasia Gordon Michelle, RN RN me1 Martínez Geronimo, BAKING POWDER MIXER-C BAKING POWDER MIXER-Cdr5 Corrections: (The following items were deleted from the chart) 17:00 16:56 Chief complaint: Patient states: c/o bilateral foot pain that worse on the right. me1 Reports that right foot is swollen, symptoms started last night. Pain is 5/10 at rest, 8/10 with weight bearing. Denies injury. Denies fever. me1
[2025-08-14 23:42] VITALS: TEMP 97.9
[2025-08-14 23:44] VITALS: BP 135/99; O2SAT 100
== END 2025-08-14 19:21 | disposition home or self-care (01) ==
LOC: ER 16:32
DX: M79.674 Pain in right toe(s) (principal); S91.131A Puncture wound without foreign body of right great toe without damage to nail, initial encounter
CPT/HCPCS: 99283